=== PATIENT | female | born 1985 | race Caucasian/White ===

== ENCOUNTER 2017-10-18 05:51 | Day surgery (SDC) | payer OTHER, MEDICAID ==
[2017-10-18] MEDS ORDERED: MIDAZOLAM 1 MG/ML 2 ML INJ (06:15)
[2017-10-18] MEDS ORDERED: GLYCOPYRROLATE 0.4 MG INJ (06:15)
[2017-10-18] MEDS ORDERED: PROPOFOL 20 ML (06:15)
[2017-10-18] MEDS ORDERED: ROCURONIUM 50 MG INJ (06:15)
[2017-10-18] MEDS ORDERED: NEOSTIGMINE 3 MG/3 ML SYRINGE (06:15)
[2017-10-18] MEDS ORDERED: LIDOCAINE 2% (SDV) 5 ML INJ (06:15)
[2017-10-18] MEDS ORDERED: DEXAMETHASONE 4 MG/ML 1 ML INJ (06:16)
[2017-10-18] MEDS ORDERED: FENTAnyl 50 MCG/ML VIAL (06:16)
[2017-10-18] MEDS ORDERED: ONDANSETRON 4 MG INJ (06:17)
[2017-10-18] MEDS ORDERED: HYDROmorphONE 1 MG/5 ML IV SYRINGE IV ×2 (06:30)
[2017-10-18] MEDS ORDERED: hydrALAzine 20 MG INJ IV (06:30)
[2017-10-18] MEDS ORDERED: morphine (1 MG/ML) 10ML SYRINGE IV ×3 (06:30)
[2017-10-18] MEDS ORDERED: OXYCODONE/ACETAMINOPHEN (5/325) TAB PO ×2 (06:30)
[2017-10-18] MEDS ORDERED: MIDAZOLAM 1 MG/ML 2 ML INJ IV (06:30)
[2017-10-18] MEDS: LACTATED RINGER'S 1,000 ML IV (06:30)
[2017-10-18] MEDS ORDERED: DIPHENHYDRAMINE 50 MG INJ IV (06:30)
[2017-10-18] MEDS ORDERED: MEPERIDINE 25 MG INJ IV (06:30)
[2017-10-18] MEDS ORDERED: FENTAnyl 50 MCG/ML VIAL IV ×2 (06:30)
[2017-10-18] MEDS ORDERED: LABETALOL HCL 20MG INJ IV (06:30)
[2017-10-18] MEDS ORDERED: ATROPINE 1 MG/10 ML SYRINGE IV (06:30)
[2017-10-18] MEDS ORDERED: EPHEDrine SULFATE 50 MG/5 ML SYG IV (06:30)
[2017-10-18] MEDS ORDERED: NALOXONE (0.4 MG/ML) INJ (07:00)
[2017-10-18] MEDS ORDERED: CEFAZOLIN 1 GM INJ (07:00)
[2017-10-18] MEDS ORDERED: FLUMAZENIL 0.5 MG INJ (07:00)
[2017-10-18] MEDS ORDERED: VASOPRESSIN 20 UNITS INJ (07:05)
[2017-10-18] MEDS ORDERED: METHYLENE BLUE 1% 10 ML INJ (07:05)
[2017-10-18] MEDS ORDERED: SUGAMMADEX SODIUM 200 MG/2 ML VIAL IV (07:45)
[2017-10-18] MEDS ORDERED: ACETAMINOPHEN 325 MG TAB PO (08:30)
[2017-10-18] MEDS: HYDROmorphONE 1 MG/5 ML IV SYRINGE IV ×2 (08:38→08:44)
[2017-10-18] MEDS: ONDANSETRON 4 MG INJ IV (08:44)
== END 2017-10-18 10:20 | disposition home or self-care (01) ==
LOC: SDS 05:51
DX: D25.9 Leiomyoma of uterus, unspecified (principal)
CPT/HCPCS: 58558; 84702; 86850; 86900; 86901; 88305

== ENCOUNTER 2018-07-28 06:23 | Emergency (ER) | payer OTHER ==
[2018-07-28 07:21] LABS: ADD MAN DIFF? NO
[2018-07-28 07:25] LABS: BASOPHIL # 0.1 10^3/ul (0.0-0.1); BASOPHILS % 0.7 % (0.0-2.0); EOSINOPHILS # 0.2 10^3/ul (0.0-0.5); HEMOGLOBIN 13.3 g/dl (12.0-16.0); LYMPHOCYTES # 2.5 10^3/ul (0.8-2.9); LYMPHOCYTES % 34.1 % (15.0-51.0); MEAN CORPUSCULAR HEMOGLOBIN 28.6 pg (29.0-33.0); MEAN CORPUSCULAR HGB CONC 33.3 g/dl (32.0-37.0); MEAN PLATELET VOLUME 10.5 fl (7.4-10.4); MONOCYTE # 0.5 10^3/ul (0.3-0.9); NEUTROPHIL # 4.1 10^3/ul (1.6-7.5); NEUTROPHILS % 56.1 % (39.0-77.0); PLATELET COUNT 280 10^3/UL (140-415); RED BLOOD COUNT 4.65 10^6/ul (4.20-5.40); RED CELL DISTRIBUTION WIDTH 13.3 % (11.5-14.5)
[2018-07-28 07:25] LABS: WHITE BLOOD COUNT 7.3 10^3/ul (4.8-10.8)
[2018-07-28 07:31] LABS: ADD UMIC YES; UR ASCORBIC ACID NEGATIVE (NEGATIVE); UR BACTERIA FEW /HPF (NONE SEEN); UR BILIRUBIN (Dip) NEGATIVE (NEGATIVE); UR BLOOD (Dip) 1+ mg/dL (NEGATIVE); UR CLARITY CLEAR (CLEAR); UR COLOR YELLOW (YELLOW); UR GLUCOSE (Dip) NEGATIVE (NEGATIVE); UR KETONES (Dip) NEGATIVE (NEGATIVE); UR LEUKOCYTE ESTERASE (Dip) NEGATIVE Leu/ul (NEGATIVE); UR MUCUS FEW /HPF (NONE SEEN); UR NITRITE (Dip) NEGATIVE (NEGATIVE); UR RBC 2 /HPF (0-5); UR SPECIFIC GRAVITY (Dip) 1.024 (1.003-1.030); UR SQUAMOUS EPITHELIAL CELL FEW /HPF (FEW); UR TOTAL PROTEIN (Dip) 1+ mg/dl (NEGATIVE); UR UROBILINOGEN (Dip) NEGATIVE (NEGATIVE); UR WBC 6 /HPF (0-5)
[2018-07-28 07:45] LABS: ANION GAP 9 (5-13); BLOOD UREA NITROGEN 12 mg/dl (7-20); CALCIUM 9.1 mg/dl (8.4-10.2); CARBON DIOXIDE 26 mmol/L (21-31); CHLORIDE 106 mmol/L (97-110); CREATININE 0.53 mg/dl (0.44-1.00); Estimated GFR > 60 mL/min (>60); GLUCOSE 91 mg/dl (70-220); POTASSIUM 3.8 mmol/L (3.5-5.1); SODIUM 141 mmol/L (135-144)
== END 2018-07-28 09:24 | disposition home or self-care (01) ==
LOC: FTE 06:23
DX: R10.2 Pelvic and perineal pain (principal)
CPT/HCPCS: 36415; 76801; 76817; 80048; 81001; 84702; 85025; 86900; 86901; 99284-25